=== PATIENT | male | born 1975 | race Two or more races ===

== ENCOUNTER 2018-01-26 13:18 | Emergency (ER) | payer SELFPAY ==
[~2018-01-26] VITALS: Ht 185.4 cm; Wt 228.2 kg
[2018-01-26 14:17] LABS: Basophils # (auto) 0.1 uL; Eosinophils # (auto) 0.1 uL; Nucleated Red Blood Cells % 0.2 %; White Blood Cell 9.2 10^3/uL (4.4-10.8)
[2018-01-26 14:19] LABS: Basophils % (auto) 0.5 % (0.0-2.0); Eosinophils % (auto) 1.6 % (0.0-7.0); Hemoglobin 19.9 g/dL (13.5-17.5); Lymphocytes # (auto) 2.2 uL; Lymphocytes % (auto) 24.3 % (10.0-50.0); Mean Corpuscular Hemoglobin 28.9 pg (28.0-32.0); Mean Corpuscular Hgb Conc. 33.3 g/dL (32.0-36.0); Mean Corpuscular Volume 86.5 fL (80.0-100.0); Monocytes # (auto) 0.9 uL; Monocytes % (auto) 9.3 % (0.0-12.0); Neutrophils # (auto) 5.9 uL; Neutrophils % (auto) 64.3 % (37.0-80.0); Platelet Count (auto) 269 10^3/uL (140-450); Red Blood Cells 6.91 10^6/uL (4.5-5.90); Red Cell Distribution Width 17.4 % (11.8-14.3)
[2018-01-26 14:33] LABS: Hematocrit 59.8 % (41.0-53.0)
[2018-01-26] MEDS ORDERED: cloNIDine HCL 0.1 MG TAB ONE (14:58)
[2018-01-26] MEDS ORDERED: cloNIDine HCL 0.1 MG TAB PO ONE (15:00)
[2018-01-26 15:22] LABS: Albumin 3.1 g/dL (3.4-5.0); BUN/Creatinine Ratio 11.5; Bilirubin, Total 0.4 mg/dL (0.2-1.0); Calcium 8.5 mg/dL (8.5-10.1); Potassium 4.3 mmol/L (3.5-5.1)
[2018-01-26] MEDS ORDERED: SODIUM CHLORIDE 0.9% 1,000 ML IV ONE (15:30)
[2018-01-26] MEDS ORDERED: amLODIPine BESYLATE 5 MG TAB PO ONE (17:00)
[2018-01-26 17:32] VITALS: BP 164/99
== END 2018-01-26 17:33 | disposition home or self-care (01) ==
LOC: ER 13:22
DX: I11.0 Hypertensive heart disease with heart failure (principal); I50.9 Heart failure, unspecified
CPT/HCPCS: 36415; 71045; 80053; 83880; 85025; 99285; J7030